=== PATIENT | female | born 1990 | race Caucasian/White ===

== ENCOUNTER 2023-07-12 15:51 | Emergency (ER) | payer SELFPAY ==
[2023-07-12] MEDS ORDERED: Morphine 4 MG/ML VIAL ONE (16:35)
[2023-07-12] MEDS ORDERED: Lidocaine 1% (PF) 30 ML VIAL ONE (17:16)
[2023-07-12] MEDS ORDERED: Boostrix 0.5 ML (Tdap) VIAL (>/=7 yrs of age) ONE (17:18)
[2023-07-12] MEDS ORDERED: CEFAZOLIN 1 GM VIAL ONE (17:24)
[2023-07-12] MEDS ORDERED: HYDROmorphone 0.5 MG/0.5 ML SYRINGE ONE (18:24)
[2023-07-12] MEDS ORDERED: HYDROcodone/Acetaminophen 5/325 mg Tablet ONE (20:32)
== END 2023-07-12 19:51 | disposition home or self-care (01) ==
LOC: CSHERS 15:51
DX: O9A.212 Injury, poisoning and certain other consequences of external causes complicating pregnancy, second trimester (principal); S52.502A Unspecified fracture of the lower end of left radius, initial encounter for closed fracture; S52.602A Unspecified fracture of lower end of left ulna, initial encounter for closed fracture; Z3A.18 18 weeks gestation of pregnancy; Z23 Encounter for immunization; V89.2XXA Person injured in unspecified motor-vehicle accident, traffic, initial encounter
CPT/HCPCS: 12004; 90471; 90715; 96374; 96375; J0690; J1170; J2001; J2270